=== PATIENT | male | born 1965 | race Caucasian/White ===

== ENCOUNTER → 2023-05-03 | Outpatient (CLI) | payer BC ==
[2023-05-03 16:00] LABS: Basophils # (A) 0.05 X 10*3/uL (0.00-0.10); Basophils % (A) 1.1 %; Eosinophils # (A) 0.18 X 10*3/uL (0.04-0.35); Eosinophils % (A) 3.8 %; HCT 45.4 % (39.6-50.0); HGB 16.5 g/dL (13.0-17.0); Lymphocytes # (A) 1.95 X 10*3/uL (0.90-5.00); Lymphocytes % (A) 41.4 %; MCH 32.4 pg (27.0-32.0); MCHC 36.3 g/dL (32.0-37.0); MCV 89.2 FL (80.0-97.0); Mean Platelet Volume 9.3 FL (9.5-12.2); Monocytes # (A) 0.43 X 10*3/uL (0.20-1.00); Monocytes % (A) 9.1 %; NRBC Per 100 WBC 0 X 10*3/uL (0.00-0.01); Neutrophils # (A) 2.09 X 10*3/uL (1.80-7.70); Neutrophils % (A) 44.4 %; Platelet Count 234 X 10*3/uL (140-440); RBC 5.09 X 10*6/uL (4.40-5.60); RDW 11.7 % (11.5-14.5); WBC 4.71 X 10*3/uL (4.50-10.00)
[2023-05-03 16:16] LABS: ALT 29 U/L (10-49); AST 22 U/L (14-35); Albumin 4.1 g/dL (3.8-4.9); Albumin/Globulin Ratio 1.86 Ratio (1.60-3.17); Alkaline Phosphatase 67 U/L (41-126); Blood Urea Nitrogen 9.2 mg/dL (9.0-27.0); Calcium 8.9 mg/dL (8.7-10.3); Carbon Dioxide 24.6 mmol/L (21.6-31.8); Chloride 92 mmol/L (96-109); Chol/HDL Ratio 5.95 Ratio; Globulin 2.2 g/dL (1.6-3.3); Glucose 99 mg/dL (70-110); LDL Cholesterol,Calculated 91.5 mg/dL (0.0-131.0); Prostate Specific Antigen 1.12 ng/mL (0.000-3.500); Sodium 128 mmol/L (135-145); Total Bilirubin 0.5 mg/dL (0.3-1.2); Total Protein 6.3 g/dL (6.2-8.2)
== END | disposition home or self-care (01) ==
LOC: LABWHC1 08:38
PROVIDERS: ATTEND Family Medicine
DX: Z00.00 Encounter for general adult medical examination without abnormal findings (principal); Z12.5 Encounter for screening for malignant neoplasm of prostate; I10 Essential (primary) hypertension; E78.00 Pure hypercholesterolemia, unspecified
CPT/HCPCS: 36415; 80053; 80061; 84153; 84443; 85025

== ENCOUNTER → 2023-08-07 | Outpatient (CLI) | payer BC ==
[2023-08-07 15:33] VITALS: BP 123/75; PULSE 70; RESP 14; TEMP 98
--- NOTE | 2023-08-07 16:13 | P.SLEEP ---
History of Present Illness DATE: 08/07/2023 CONSULTATION/NEW PATIENT EVALUATION HISTORY OF PRESENT ILLNESS/SLEEP-WAKE EVALUATION: 57-year-old gentleman had b een evaluated in the sleep center for possible obstructive sleep apnea hypopnea syndrome. SLEEP SCHEDULE: Usually sleep schedule from 10 PM to 5 AM on weekdays and from 11 PM to 7 AM on weekend. FALLING ASLEEP: Sometimes patient has difficulties to fall asleep, has TV set in bedroom. DURING SLEEP: Patient usually sleeps on the side position with snoring and witnessed episodes of stop breathing during the sleep by his . Positive history of heartburn. Positive history of sleep talking no history of hypnogogical hallucinations, sleep paralysis, or cataplexy. DURING THE DAY/WAKE STATE: During the day patient has difficulties to pay attention, falling asleep during the day. [place] sleepiness scale is significantly increased to 15. Patient may take up to 2 naps during the day. PAST MEDICAL HISTORY: Hypertension, vertigo, RBBB, history of anxiety. PAST SURGICAL HISTORY: Inguinal hernia repair. MEDICATIONS: Please see below. SOCIAL HISTORY: Please see below. FAMILY HISTORY: Hypertension, snoring. REVIEW OF SYSTEMS: Snoring, multiple awakenings from sleep, sleepiness during the day. No fevers. No double vision. No recent chest pain. No shortness of breath. No abdominal pain. No bleeding episodes. No blood in urine. No seizure episodes. PHYSICAL EXAMINATION: GENERAL: A pleasant patient without any distress. VITAL SIGNS: Please see below, weight 204 pounds, BMI 33.3. HEENT: PERRLA, EOMI. Evaluation of oropharynx showed tongue protrudes midline, low position of soft palate Mallampati 4. NECK: Supple. No JVD. Thyroid is not palpable. 19-1/4 inches in circumference. LUNGS: Clear to percussion and to auscultation. Good air exchange. No wheezing or rhonchi. HEART: S1, S2 regular. No murmurs, gallops or rubs. ABDOMEN: Soft and nontender. Bowel sounds are present. No organomegaly appreciated. EXTREMITIES: No clubbing or cyanosis. 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 Cranial nerves 2 to 7 intact. There is no fasciculation or atrophy noted. No focal deficits observed. ASSESSMENT: 1. Snoring, witnessed episodes of stop breathing during the sleep, extremely low position of soft palate Mallampati 4, wide neck 19-1/4 inches in circumference, sleepiness with [place] Sleepiness Scale 15. Obstructive sleep apnea hypopnea syndrome. 2. Hypertension. 3. Anxiety. 4. History of vertigo. 5 history of RBBB. 6 . Status post inguinal hernia repair. 7. Mild obesity, BMI 33.3. PLAN: 1. Home sleep apnea test for evaluation of patient's breathing during sleep. 2. Following plan after reading sleep study. 3. Preferable position during sleep on the side. 4. No driving if patient feels any sleepiness. Patient is aware of civil and criminal liability for unsafe driving. 5. Sleep hygiene with regular sleep time for at least 7.5-8 hours. 6. Watching and losing weight. Thank you very much for referring this patient for consultation. Sincerely, Hilario Brito MD, PhD, FAASM. Diplomat of [place] [employer], Sleep Medicine Board by [place] [employer] [place] [employer] Librarian Helper of [facility] [place] Past Medical History Past Medical History: GERD/Reflux, Hypertension, Prostate Disorder Additional Past Medical History / Comment(s): R BUNDLE BRANCH BLOCK, ANXIETY, EUSTACHIAN TUBES A LITTLE BLOCKED - VERTIGO-FLONASE, History of Any Multi-Drug Resistant Organisms: None Reported Past Surgical History: Cholecystectomy, Hernia Repair, Prostate Surgery Additional Past Surgical History / Comment(s): TURP, umbilical and inguinal hernia, adhesion removal Additional Past Anesthesia/Blood Transfusion Reaction / Comment(s): Constipation Past Psychological History: Anxiety Smoking Status: Current every day smoker Past Alcohol Use History: Occasional Past Drug Use History: None Reported Additional Drug Use History / Comment(s): 3 days a week, 6-8 beers Medications and Allergies Home Medications Medication Instructions Recorded Confirmed Type ALPRAZolam [Xanax] 1 mg PO BID 08/08/13 08/07/23 History Hydrocodone/Acetaminophen [[place] 1 tab PO Q4H PRN 08/08/13 08/08/13 History 5-325] Omeprazole [PriLOSEC] 20 mg PO DAILY 08/08/13 08/08/13 History Sulfamethox-Tmp 800-160Mg [Bactrim 1 tab PO BID 08/08/13 08/08/13 History DS 800-160 mg] amLODIPine BESYLATE [Norvasc] 5 mg PO DAILY 08/08/13 08/08/13 History lisinopriL [Zestril] 20 mg PO BID 08/08/13 08/07/23 History Amoxicillin/Potassium Clav 1 each PO Q12HR #10 tab 08/09/13 Rx [Augmentin 875-125 Tablet] metroNIDAZOLE [Flagyl] 500 mg PO QID #20 tab 08/09/13 Rx Doxazosin Mesylate [Cardura] 08/07/23 History Doxazosin Mesylate [Cardura] 4 mg PO BID 08/07/23 08/07/23 History Escitalopram [Lexapro] 10 mg PO DAILY 08/07/23 08/07/23 History Fluticasone Nasal [place] [Flonase 2 spray EA NOSTRIL DAILY 08/07/23 08/07/23 History Nasal [place]] Meclizine [Antivert] 12.5 mg PO TID 08/07/23 08/07/23 History Metoprolol Succinate (ER) [Toprol 50 mg PO BID 08/07/23 08/07/23 History Xl] hydrALAZINE HCL 25 mg PO TID 08/07/23 08/07/23 History Allergies Allergy/AdvReac Type Severity Reaction Status Date / Time ciprofloxacin [From Cipro] AdvReac Nausea & Verified 08/08/13 10:52 Vomiting & Diarrhea ciprofloxacin HCl AdvReac Nausea & Verified 08/08/13 10:52 [From Cipro] Vomiting & Diarrhea Physical Exam Vitals: Vital Signs Temp Pulse Resp BP Pulse Ox 08/07/23 15:22 98.0 F 70 14 123/75 96 Intake and Output 08/07/23 08/07/23 08/07/23 06:59 14:59 22:59 Other: Weight 92.76 kg Sleep Note - Sleep Data ESS Total: 15 - Sleep Note Sleep Note: Temperature: 98.0 F Pulse Rate: 70 Respiratory Rate: 14 Blood Pressure: 123/75 SpO2: 96 Height: 5 ft 5.7 in Weight: 92.76 kg BMI: Neck Circumference: 19.2
== END ==
LOC: 3 N SLEEP 14:19
PROVIDERS: ATTEND Internal Medicine
DX: G47.33 Obstructive sleep apnea (adult) (pediatric) (principal); I10 Essential (primary) hypertension; F41.9 Anxiety disorder, unspecified; G47.10 Hypersomnia, unspecified; E66.9 Obesity, unspecified; F17.200 Nicotine dependence, unspecified, uncomplicated; Z98.890 Other specified postprocedural states; Z68.33 Body mass index [BMI] 33.0-33.9, adult; Z86.69 Personal history of other diseases of the nervous system and sense organs; Z86.79 Personal history of other diseases of the circulatory system; Z88.1 Allergy status to other antibiotic agents; Z79.899 Other long term (current) drug therapy
CPT/HCPCS: 99211

== ENCOUNTER → 2023-08-19 | Outpatient (CLI) | payer BC ==
--- NOTE | 2023-08-21 12:07 | P.PCN ---
Description of Procedure: CLINICAL: A home sleep apnea test has been done for confirmation of possible obstructive sleep apnea-hypopnea syndrome. DESCRIPTION OF PROCEDURE: RESULTS: Recording time was 7 hours 52 minutes. Evaluation time was 7 hours 41 minutes. Evaluation time is sufficient for making conclusion about results of the test. Raw data of sleep recording has been reviewed and is adequate. Respiratory channel showed 89 apneas and 150 hypopneas. Apnea-hypopnea index was 31.1 per hour. Pulse rate in the range between minimum 50, maximum 88, average 63 by computer calculation. Lowest desaturation was 79%. IMPRESSION: 1. Severe Obstructive Sleep Apnea Hypopnea Syndrome. Please see other impressions from consultation. PLAN: 1. The patient should have PAP titration for correction of respiratory abnormallities during sleep. 2. Sleep hygiene with regular time in bed for at least 8 hours. 3. Watching weight. 4. No driving if feeling any sleepiness. Thank you very much for allowing me to participate in the management of your patient. Sincerely, Hilario Brito MD, PhD, FAASM Diplomat of [place] [employer] Sleep Medicine Board of [place] Board of Internal Medicine Board Hammer Operator of [facility] [place]
== END ==
LOC: 3 N SLEEP 13:06
PROVIDERS: ATTEND Internal Medicine
DX: G47.33 Obstructive sleep apnea (adult) (pediatric) (principal); F17.200 Nicotine dependence, unspecified, uncomplicated; Z88.1 Allergy status to other antibiotic agents

== ENCOUNTER 2023-09-30 19:29 | Outpatient (CLI) | payer BC ==
--- NOTE | 2023-10-02 10:48 | P.PCN ---
Description of Procedure: CLINICAL: Titration with positive air pressure has been done for correction of respiratory abnormalities during sleep. DESCRIPTION OF PROCEDURE: The standard montage for clinical polysomnography included the electroencephalogram, the electrocardiogram, the mentalis surface electromyography and Lead II cardiography. The respiratory battery consisted of measurements of nasal /buccal air flow, pressure transducer measurements from the nose, thoracic and /or abdominal effort and intercostal surface electromyography. Video monitoring has been done to check for any parasomnia events. Nocturnal oxyhemoglobin saturations were obtained by finger oximetry. Step-baeza titration with positive airway pressure was utilized to control respiratory events. Raw data of sleep recording has been reviewed and is adequate. RESULTS: Sleep efficiency was significantly decreased to 71.0%. Latency to sleep onset was in normal range 25.5 minutes.]. Sleep architecture showed stage N1 was short 3.0%, Delta sleep was absent 0%, REM sleep was normal 21.4%. Heart rate was minimum 57 BPM, maximum 67 BPM, average 62 BPM. EMG showed 86.9 periodic limb movements per hour with 0 micriarousals per hour. PAP titration have been done with CPAP up to the pressure 11 cm H2O. The best results were at the pressure 11 cm H2O. Apnea hypopnea index reduced to 0. IMPRESSION: 1. Obstructive sleep apnea hypopnea syndrome on controle with PAP treatment. 2. Severe periodic limb movements have been documented but without significant microarousal's related to leg movements. Please see other impressions from consultation. PLAN: 1. The patient will have treatment with positive air pressure equipment with the level of pressure AutoPAP 5-13 cm H2O and should use it every night for the whole night. 2. Watching and losing weight. 3. Sleep hygiene with regular time in bed for at least 8 hours. 4. No driving if feeling any sleepiness. 5. I will see the patient for follow up visit to explain the results of the test, recommendations, check compliance with treatment and make any necessary adjustment related to mask fitting, pressure and humidification. 6. Please check iron profile including ferritin level. Low level of iron may increase risk for periodic limb movements Thank you very much for allowing me to participate in the management of your patient. Sincerely, Hilario Brito MD, PhD, FAASM Diplomat of [place] [employer] Specialties Sleep Medicine Board of [place] [employer] Internal Medicine Corporate Aircraft Mechanic of [facility] [place] cc: Amando Bosch MD
== END 2023-10-01 06:00 | disposition home or self-care (01) ==
LOC: 3 N SLEEP 19:29
PROVIDERS: ATTEND Internal Medicine
DX: G47.33 Obstructive sleep apnea (adult) (pediatric) (principal); G47.61 Periodic limb movement disorder; F17.200 Nicotine dependence, unspecified, uncomplicated; Z88.1 Allergy status to other antibiotic agents
CPT/HCPCS: 95811

== ENCOUNTER → 2023-12-18 | Outpatient (CLI) | payer BC ==
[2023-12-18 11:35] VITALS: BP 128/78; PULSE 61; RESP 16; TEMP 97.6
--- NOTE | 2023-12-18 14:12 | P.PROGSL ---
Subjective DATE: 12/18/2023 FOLLOW UP VISIT. Patient with obstructive sleep apnea hypopnea syndrome return to sleep center for follow-up visit. Recently patient had sleep study which documented obstructive sleep apnea hypopnea syndrome. Patient was initiated on PAP therapy and today is first visit after treatment was started. I explained results of sleep studies to the patient in details. Patient was able to use PAP equipment most of the nights. Patient has some problems related to equipment. [place] sleepiness scale is 8, which is normal. I checked information from PAP unit. PAP unit pressure 7-11 cm H2O. Usage is 80% and around 70% for more then 4 hours, average 6.5 hours per night. Leak is 3.1 l/m, which is in normal range. Apnea Hypopnea Index is slightly increased to 8.0. MEDICATIONS: Please see below During physical exam: GENERAL: A pleasant patient without any distress. VITAL SIGNS: Please see below, weight 205.8 pounds. HEENT: PERRLA, EOMI.low position of soft palate, Mallapati 4 . NECK: Supple. No JVD. LUNGS: Clear to percussion and to auscultation. Good air exchange. No wheezing or rhonchi. HEART: S1, S2 regular. ABDOMEN: Soft and nontender.[] EXTREMITIES: No clubbing or cyanosis. 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 No focal deficit. Impressions: 1. Severe obstructive sleep apnea-hypopnea syndrome. Patient demonstrated borderline compliance with treatment, benefiting from treatment. 2. Obesity. 3. Hypertension. 4. Anxiety. 5. History of RBBB. 6. History of vertigo. 7. Status post inguinal hernia repair. Patient has 2 tubes connected to each other with additional connector before the mask tube. I made connection from machine to the mask connector with 1 tube, as it supposed to be. Level of humidity in humidifier was adjusted down from 6 to 4. Temperature in the tube was adjusted down from 86 degree to 80 degree. Pressure in AutoPAP unit was adjusted up to the level 8-14 cm of water. Patient started to use CPAP in the office with this adjustments and pressure feels comfortable for him. Plan: 1. Continue using PAP equipment every night for the whole night. 2. To change air filter at least 1-2 times per month. 3. PAP unit should stay lower then position of the head. 4. Advised patient to remove all remaining water from humidifier canister daily and make it dry after each usage. Refill canister with fresh distilled water before each usage. 5. Sleep hygiene with regular time in bed for at least 8 hours. 6. Precautions related to driving. No driving if feel any sleepiness. 7. I will maintain prescription for PAP supplies including mask, tube, filters. 8. Follow up visit in 8 months or earlier if patient has any problems. 9. Watching and losing weight. Thank you very much for allowing me to participate in the management of your patient. Hilario Brito MD, PhD, FAASM. Diplomat of [place] [employer] of Sleep Medicine, Sleep Medicine Board by [place] [employer] Internal Medicine Sprinkling Truck Driver of [facility] [place] cc: Amando Bosch MD Objective - Vital Signs Vital Signs: Vital Signs Temp 97.6 F 12/18/23 11:32 Pulse 61 12/18/23 11:32 Resp 16 12/18/23 11:32 BP 128/78 12/18/23 11:32 Pulse Ox 96 12/18/23 11:32 FiO2 Intake & Output 12/17/23 12/18/23 12/18/23 18:59 06:59 18:59 Weight 93.213 kg Home Medications: Home Medications Medication Instructions Recorded Confirmed Type ALPRAZolam [Xanax] 1 mg PO BID 08/08/13 08/07/23 History Hydrocodone/Acetaminophen [[place] 1 tab PO Q4H PRN 08/08/13 08/08/13 History 5-325] Omeprazole [PriLOSEC] 20 mg PO DAILY 08/08/13 08/08/13 History Sulfamethox-Tmp 800-160Mg [Bactrim 1 tab PO BID 08/08/13 08/08/13 History DS 800-160 mg] amLODIPine BESYLATE [Norvasc] 5 mg PO DAILY 08/08/13 08/08/13 History lisinopriL [Zestril] 20 mg PO BID 08/08/13 08/07/23 History Amoxicillin/Potassium Clav 1 each PO Q12HR #10 tab 08/09/13 Rx [Augmentin 875-125 Tablet] metroNIDAZOLE [Flagyl] 500 mg PO QID #20 tab 08/09/13 Rx Doxazosin Mesylate [Cardura] 08/07/23 History Doxazosin Mesylate [Cardura] 4 mg PO BID 08/07/23 08/07/23 History Escitalopram [Lexapro] 10 mg PO DAILY 08/07/23 08/07/23 History Fluticasone Nasal [place] [Flonase 2 spray EA NOSTRIL DAILY 08/07/23 08/07/23 History Nasal [place]] Meclizine [Antivert] 12.5 mg PO TID 08/07/23 08/07/23 History Metoprolol Succinate (ER) [Toprol 50 mg PO BID 08/07/23 08/07/23 History Xl] hydrALAZINE HCL 25 mg PO TID 08/07/23 08/07/23 History
== END ==
LOC: 3 N SLEEP 11:03
PROVIDERS: ATTEND Internal Medicine
CPT/HCPCS: 99212